=== PATIENT | female | born 1950 | race Two or more races ===

== ENCOUNTER 2018-07-10 15:39 | Emergency (ER) | payer OTHER ==
[~2018-07-10] VITALS: Ht 167.6 cm; Wt 84.8 kg
[2018-07-10 15:45] VITALS: BP 121/61
[2018-07-10] MEDS ORDERED: diphenhdrAMINE HCL 25 MG CAP PO ONE (19:15)
== END 2018-07-10 19:44 | disposition home or self-care (01) ==
LOC: ER 15:42
DX: R33.9 Retention of urine, unspecified (principal); T78.40XA Allergy, unspecified, initial encounter; E78.5 Hyperlipidemia, unspecified; I10 Essential (primary) hypertension; Z86.39 Personal history of other endocrine, nutritional and metabolic disease; Z90.49 Acquired absence of other specified parts of digestive tract; Z88.0 Allergy status to penicillin; X58.XXXA Exposure to other specified factors, initial encounter
CPT/HCPCS: 51702